=== PATIENT | female | born 1960 | race Caucasian/White ===

== ENCOUNTER → 2017-08-06 | Outpatient (CLI) | payer OTHER ==
[~2017-08-06] MED LIST: ALBU18HF INH; ASPI325T17 PO; BUDE10.2 INH; ESOM40CA PO; HYDR-2442 PO; HYDR-3240 PO; LORA1TAB PO; PROTEIN SHAKE PO
== END | disposition home or self-care (01) ==
LOC: CVU 13:43
PROVIDERS: ATTEND Physician Assistant
DX: I70.213 Atherosclerosis of native arteries of extremities with intermittent claudication, bilateral legs (principal); I65.23 Occlusion and stenosis of bilateral carotid arteries; I25.9 Chronic ischemic heart disease, unspecified; I77.1 Stricture of artery; E78.5 Hyperlipidemia, unspecified; Z87.891 Personal history of nicotine dependence
CPT/HCPCS: 93922; 93925

== ENCOUNTER → 2017-08-20 | Outpatient (CLI) | payer OTHER | END | disposition home or self-care (01) | LOC: CVU 06:49 | PROVIDERS: ATTEND Nurse Practitioner Family | DX: I70.0 Atherosclerosis of aorta (principal); I25.9 Chronic ischemic heart disease, unspecified; I65.29 Occlusion and stenosis of unspecified carotid artery | CPT/HCPCS: 93880; 93978 ==

== ENCOUNTER → 2017-11-04 | Outpatient (CLI) | payer OTHER ==
[~2017-11-04] MED LIST changes: +EVOL140S INJ; +TRAM50TA2 PO; +Vitamin B12
[2017-11-04 09:04] LABS: BLOOD UREA NITROGEN 6 mg/dL (7-18)
[2017-11-04 09:31] LABS: HEMATOCRIT 42.7 % (34.6-47.8); HEMOGLOBIN 14.7 g/dL (11.7-16.4); WHITE BLOOD COUNT 8.5 x10^3/uL (3.4-10)
== END | disposition home or self-care (01) ==
LOC: STAR 07:59
PROVIDERS: ATTEND Surgery Vascular Surgery
DX: Z01.818 Encounter for other preprocedural examination (principal); I65.29 Occlusion and stenosis of unspecified carotid artery; I73.9 Peripheral vascular disease, unspecified; I25.10 Atherosclerotic heart disease of native coronary artery without angina pectoris; K21.9 Gastro-esophageal reflux disease without esophagitis; E78.00 Pure hypercholesterolemia, unspecified
CPT/HCPCS: 36415; 80048; 85025

== ENCOUNTER 2017-11-17 06:22 | Day surgery (SDC) | payer OTHER ==
[~2017-11-17] VITALS: Ht 172.7 cm; Wt 61.2 kg
[2017-11-17 07:10] VITALS: BP 119/79
[2017-11-17] MEDS ORDERED: LIDOCAINE 2%, 20ML ONE (07:19)
[2017-11-17] MEDS ORDERED: NALOXONE 1 MG/ML, 2ML ONE (07:21)
[2017-11-17] MEDS ORDERED: FENTANYL PF 100 MCG/2ML ONE (07:21)
[2017-11-17] MEDS ORDERED: NITROGLYCERIN 5 MG/ML, 10ML ONE (07:21)
[2017-11-17] MEDS ORDERED: FLUMAZENIL 0.1 MG/1 ML, 5ML ONE (07:21)
[2017-11-17] MEDS ORDERED: PROTAMINE SULFATE 10 MG/ML, 25ML ONE (07:21)
[2017-11-17] MEDS ORDERED: HEPARIN 1,000 UNITS/ML, 10ML ONE (07:21)
[2017-11-17] MEDS ORDERED: MIDAZOLAM 1 MG/ML, 5ML ONE (07:21)
[2017-11-17] MEDS ORDERED: VISIPAQUE 270 MG/ML, 150ML BOTTLE ONE (09:00)
[2017-11-17] MEDS ORDERED: HYDROcodone/APAP 5/325 TABLET ONE (11:52)
[2017-11-17] MEDS ORDERED: HYDROcodone/APAP 5/325 TABLET PO ONE (12:00)
== END 2017-11-17 12:00 ==
LOC: OUT 06:22
PROVIDERS: ATTEND Surgery Vascular Surgery
DX: I70.213 Atherosclerosis of native arteries of extremities with intermittent claudication, bilateral legs (principal); J44.9 Chronic obstructive pulmonary disease, unspecified; F17.210 Nicotine dependence, cigarettes, uncomplicated
CPT/HCPCS: 36200; 75625; 75716; 99156; 99157; C1751; C1769; C1894; J2250; J3010; J3490; Q9966; 75630; J1644; J2720; J2310